=== PATIENT | female | born 1995 | race Caucasian/White ===

== ENCOUNTER 2018-07-23 00:47 | Day surgery (SDC) | payer OTHER ==
[~2018-07-23] VITALS: Ht 152.4 cm; Wt 48.1 kg
[~2018-07-23 00:47] MED LIST: OMEP-125 PO; PENI-24 PO
[2018-07-23] MEDS ORDERED: NORMOSOL R SOLN(*) 1000 ML BAG 1,000 ML IV PRN (11:50)
[2018-07-23] MEDS ORDERED: LIDOCAINE/SOD BICARB 8.4% SYR ID ONE (11:50)
[2018-07-23 12:04] VITALS: BP 120/81
[2018-07-23 13:50] VITALS: BP 84/43
[2018-07-23 14:15] VITALS: BP 91/59
[2018-07-23 14:41] VITALS: BP 105/68
[2018-07-23 14:42] VITALS: BP 110/75
== END 2018-07-23 14:50 | disposition home or self-care (01) ==
LOC: OR 00:47
PROVIDERS: ATTEND Internal Medicine Gastroenterology
DX: K20.9 Esophagitis, unspecified (principal); K44.9 Diaphragmatic hernia without obstruction or gangrene; K29.70 Gastritis, unspecified, without bleeding
CPT/HCPCS: 81025; 88305; 88313; 88344

== ENCOUNTER 2019-03-29 13:24 | Emergency (ER) | payer BC, OTHER ==
--- NOTE | 2019-03-29 13:33 | ER Report ---
History and Physical Time Seen By MD: 13:28 Hx. of Stated Complaint: LEFT HEAD/NECK PAIN X 2 WEEKS, NO KNOWN INJURY, NAUSEA, DIZZINESS, PAIN IN LEFT EAR HPI/ROS CHIEF COMPLAINT: Headache HISTORY OF PRESENT ILLNESS: This is a 23-year-old female presents emergency department for headache. Patient states that she's had an off-and-on headache for the last 2 weeks, is increasing in intensity, she does have a history of migraines however she states this is different. The pain is on the left side of her head, travels up to the temporal region into the forehead, she also has pain down into the left neck. No fevers or chills. No unusual rashes. No meningismus. No changes in vision. Denies chest pain or shortness of breath, no dysuria or GI symptoms. REVIEW OF SYSTEMS: Constitutional: No fever, no chills. Eyes: No discharge. ENT: No sore throat. Cardiovascular: No chest pain, no palpitations. Respiratory: No cough, no shortness of breath. Gastrointestinal: No abdominal pain, no vomiting. Genitourinary: No hematuria. Musculoskeletal: As above. Skin: No rashes. Neurological: As above. Allergies: Coded Allergies: No Known Drug Allergies (Unverified , 03/29/19) Home Meds Active Scripts Cyclobenzaprine Hcl (CYCLOBENZAPRINE HCL) 10 Mg Tablet, 5-10 MG PO TID PRN for MUSCLE SPASMS, #9 TAB Prov:AKHIL FULLER [place] [employer] 03/29/19 Reported Medications Omeprazole (OMEPRAZOLE) 20 Mg Capsule.dr, 1 CAP PO PRN, CAP 07/17/18 Past Medical/Surgical History Patient has a past medical and surgical history of her glasses, GERD, headaches, migraines. Reviewed Nurses Notes: Yes Hx Smoking: No Exposure to Second Hand Smoke?: No Hx Substance Use Disorder: No Hx Alcohol Use: Yes Constitutional Vital Sign - Last 24 Hours 03/29/19 03/29/19 03/29/19 03/29/19 13:27 13:30 13:45 14:00 Temp 97.6 Pulse 58 57 53 57 Resp 14 B/P (MAP) 128/90 122/84 (97) 114/79 (91) Pulse Ox 96 97 94 95 O2 Delivery Room Air 4/29/03/29/19 03/29/19 03/29/19 14:15 14:30 14:45 15:00 Pulse 53 53 51 55 B/P (MAP) 113/77 (89) 118/74 (89) Pulse Ox 95 94 95 96 Physical Exam General Appearance: The patient is alert, has no immediate need for airway protection and no signs of toxicity. Eyes: Pupils equal and round no pallor or injection. EOMs intact. ENT, Mouth: Mucous membranes are moist. Respiratory: There are no retractions, lungs are clear to auscultation. Cardiovascular: Regular rate and rhythm. Gastrointestinal: Abdomen is soft and non tender, no masses, bowel sounds normal. Neurological: Alert and oriented 4. Moving all extremities. Following all commands. No focal neuro deficits. Skin: Warm and dry, no rashes. Musculoskeletal: Left trapezius muscle his very tight and tense as compared to the right. Extremities are nontender, nonswollen and have full range of motion. DIFFERENTIAL DIAGNOSIS: After history and physical exam differential diagnosis was considered for intracranial hemorrhage, migraine headache, tension headache, torticollis, temporal arteritis. Medical Decision Making EKG/Imaging Imaging PATIENT NAME: Sadaf Hernadez : 1995 MR: [id number] V: [id number] EXAM DATE: ORDERING PHYSICIAN: AKHIL FULLER TECHNOLOGIST: Location: [facility] Patient: Sadaf Hernadez : 1995 Visit/Account:[id number] Date of Sevice: 03/29/[address] scan without contrast COMPARISONS: None ADDITIONAL PERTINENT HISTORY: None TECHNIQUE: Multiple axial images were obtained from the skull base to the vertex without IV contrast. One of the following dose optimization techniques was utilized in the performance of this exam: Automated exposure control; adjustment of the mA and/or kV according to the patient's size; or use of an iterative reconstruction technique. Specific details can be referenced in the facility's radiology CT exam operational policy. FINDINGS: Midline shift: Negative Ventricles: Negative Brain parenchyma: Negative Extra-axial spaces: Negative Intracranial vasculature: Negative Osseous structures: Negative Paranasal sinuses and mastoid air cells: Negative Surrounding soft tissues and orbits: Negative IMPRESSION: Normal head CT scan without contrast. Report Dictated By: Flaco Lane MD at 03/29/2019 2:18 PM Report E-Signed By: Flaco Lane MD at 03/29/2019 2:20 PM WSN:[email or web address] ED Course/Re-evaluation ED Course The patient was admitted to room. A history and physical were obtained. Differential diagnoses were considered. A CT of the brain was negative for any acute intracranial abnormalities. I reviewed this with the patient. She was given 30 mg IM Norflex. I did examine this patient that the headache is likely from what appears to be torticollis on the left side, she did have some relief with her pain after the injection. I also suggested following up with neurology for her migraine headaches. Patient was also instructed to take ibuprofen or Tylenol as needed for pain. Was given Flexeril for muscle spasms muscular pain. Patient had no questions or concerns at this time discharged home. Decision to Disposition Date: Mar 29, 2019 Decision to Disposition Time: 14:48 Depart Departure Latest Vital Signs Vital Signs Date Time Temp Pulse Resp B/P (MAP) Pulse Ox O2 Delivery O2 Flow Rate FiO2 03/29/19 15:00 55 118/74 (89) 96 03/29/19 13:27 97.6 14 Room Air Impression: Primary Impression: Headache Additional Impression: TORTICOLLIS Condition: Improved Disposition: HOME OR SELF-CARE Referrals: RENEE ALBERT DO (PCP) New Scripts Cyclobenzaprine Hcl (CYCLOBENZAPRINE HCL) 10 Mg Tablet 5-10 MG PO TID PRN for MUSCLE SPASMS, #9 TAB Prov: AKHIL FULLER [employer] 03/29/19 Patient Instructions: Acute Headache (ED), Spasmodic Torticollis (ED) Additional Instructions: There were no concerning findings on the CT of the brain today. I believe you have headache secondary to a mild left-sided torticollis. Use the Flexeril as prescribed, this is a muscle relaxer. Please use ibuprofen 6 or milligrams every 6 hours as needed. Drink plenty of water. Get plenty of rest. Return to the ER for any other concerns or worsening symptoms. Please consider following up with the headache clinic, neurology clinic in [place] for recurrent migraine headaches as well. Problem Qualifiers Primary Impression: Headache Headache type: unspecified Headache chronicity pattern: unspecified pattern Intractability: not intractable Qualified Codes: R51 - Headache SONDGEROTH,AKHIL L [employer]- Mar 29, 2019 13:33
--- NOTE | 2019-03-29 14:24 | RADIOLOGY IMAGING REPORT ---
FACILITY: [facility] PATIENT NAME: Sadaf Hernadez : 1995 MR: [id number] V: [id number] EXAM DATE: ORDERING PHYSICIAN: AKHIL FULLER TECHNOLOGIST: Location: [facility] Patient: Sadaf Hernadez : 1995 Visit/Account:[id number] Date of Sevice: 03/29/[address] scan without contrast COMPARISONS: None ADDITIONAL PERTINENT HISTORY: None TECHNIQUE: Multiple axial images were obtained from the skull base to the vertex without IV contrast . One of the following dose optimization techniques was utilized in the performance of this exam: Aut omated exposure control; adjustment of the mA and/or kV according to the patient's size; or use of an iterative reconstruction technique. Specific details can be referenced in the facility's radiology CT exam operational policy. FINDINGS: Midline shift: Negative Ventricles: Negative Brain parenchyma: Negative Extra-axial spaces: Negative Intracranial vasculature: Negative Osseous structures: Negative Paranasal sinuses and mastoid air cells: Negative Surrounding soft tissues and orbits: Negative IMPRESSION: Normal head CT scan without contrast. Report Dictated By: Flaco Lane MD at 03/29/2019 2:18 PM Report E-Signed By: Flaco Lane MD at 03/29/2019 2:20 PM WSN:[id number]
[2019-03-29] MEDS ORDERED: ORPHENADRINE 60MG/2ML INJ IM ONE (14:45)
[2019-03-29] MEDS ORDERED: CYCL10TA29 PO (14:50)
[2019-03-29 15:00] VITALS: BP 118/74
== END 2019-03-29 15:20 | disposition home or self-care (01) ==
LOC: ER 13:36
DX: R51 Headache (principal); M43.6 Torticollis
CPT/HCPCS: 70450; 96372; 99284; J2360